=== PATIENT | male | born 1990 | race Two or more races ===

== ENCOUNTER 2017-01-31 08:50 | Emergency (ER) | payer MEDICAID ==
[~2017-01-31] VITALS: Ht 175.3 cm; Wt 68.0 kg
[~2017-01-31 08:50] MED LIST: ADVAIR 250-501 EACH INH; CYCLOBENZAPRINE10 MG ORAL; SINGULAIR10 MG ORAL; TYLENOL EXTRA500 MG ORAL; VENTOLIN HFA18 GM INH
[2017-01-31 09:10] VITALS: BP 121/92
[2017-01-31] MEDS ORDERED: PredniSONE 20mg tab ORAL ONE (09:15)
[2017-01-31] MEDS: Ipratropium 0.02% Inh Soln 2.5ml UD HHN SCH ×2 (09:30→10:17)
[2017-01-31] MEDS: Levalbuterol Inh UD 1.25mg/0.5ml HHN PRN ×2 (09:30→10:17)
[2017-01-31 10:46] VITALS: BP 133/97
[2017-01-31 11:12] VITALS: BP 133/97
[2017-01-31] MEDS ORDERED: PREDNISONE20 MG ORAL (11:15)
[2017-01-31] MEDS ORDERED: VENTOLIN HFA18 GM INH (11:15)
[2017-01-31] MEDS ORDERED: ALBUTEROL2.5 MG/3 M HHN (11:15)
[2017-01-31] MEDS ORDERED: ADVAIR 250-501 EACH INH (11:15)
--- NOTE | 2017-01-31 12:11 | Emergency Room Report ---
History of Present Illness General Chief Complaint: Asthma Source: Patient Present Illness HPI 26-year-old male presents ED complaining of shortness of breath and wheezing. States symptoms started around 4 AM today. Patient has history of asthma. States that he uses nebulizer machine several times without significant relief. Patient is tachycardic here with wheezing. Denies any fevers or chills. Denies chest pain. Denies cough. No other aggravating relieving factors. Denies any other associated symptoms Allergies: Coded Allergies: No Known Allergies (Unverified , 03/01/16) Patient History Past Medical History: asthma Past Surgical History: none Pertinent Family History: none Social History: Denies: alcohol use, drug use, smoking Reviewed Nursing Documentation: PMH: Agreed, PSxH: Agreed Nursing Documentation-PMH Past Medical History: No History, Except For Hx Asthma: Yes Review of Systems All Other Systems: negative except mentioned in HPI Physical Exam Vital Signs Date Time Temp Pulse Resp B/P Pulse Ox O2 Delivery O2 Flow Rate FiO2 01/31/17 09:01 98.2 139 18 121/92 93 Room Air Sp02 EP Interpretation: reviewed, normal General Appearance: no apparent distress, alert, GCS 15, non-toxic Head: normocephalic Eyes: bilateral eye PERRL, bilateral eye normal inspection ENT: normal ENT inspection Neck: normal inspection Respiratory: normal breath sounds, speaking full sentences, wheezing Cardiovascular #1: no edema, tachycardia Gastrointestinal: normal inspection Rectal: deferred Genitourinary: no CVA tenderness Musculoskeletal: normal inspection Neurologic: alert, oriented x3, responsive, motor strength/tone normal, sensory intact, speech normal Psychiatric: normal inspection Skin: normal inspection Lymphatic: normal inspection Medical Decision Making Diagnostic Impression: Primary Impression: Asthma attack ER Course Hospital Course 26-year-old male presents to ED complaining of cough, SOB Differential diagnoses include: URI, bronchitis, asthma/COPD, pneumonia Clinical course Patient placed on stretcher. After initial history, physical exam reveals a male in no acute distress. Bilateral TM unremarkable. No pharyngeal erythema. No tonsillar exudates. No lymphadenopathy. Mild wheezing noted on exam, no signs of respiratory distress or retractions. Patient given Prednisone and xopenex/atrovent treatment x3 in ED with symptoms improved. Patient states that he used to take advair but his insurance ran out in ED and he couldn't afford the medication patient states he has insurance again and can fill the Advair prescription Diagnosis - asthma attack Stable and discharged home with prescriptions for prednisone, albuterol inhaler , advair. Instructed to followup with PMD. Return to ED if symptoms recur or worsen Last Vital Signs Date Time Temp Pulse Resp B/P Pulse Ox O2 Delivery O2 Flow Rate FiO2 01/31/17 11:12 98.2 121 22 133/97 100 Room Air Status: improved Disposition: HOME, SELF-CARE Condition: Stable Scripts Albuterol Sulfate* (ALBUTEROL SULFATE HHN*) 2.5 Mg/3 Ml Vial.neb 2.5 MG HHN Q4H Y for Shortness of Breath, #25 VIAL Prov: REBECA ONEILL M.D. 01/31/17 Fluticasone/Salmeterol (Advair 250-50 Diskus) 1 Each Blst.w.dev 1 PUFF INH EVERY 12 HOURS, #1 EA Prov: REBECA ONEILL M.D. 01/31/17 Prednisone* (PREDNISONE*) 20 Mg Tablet 40 MG ORAL DAILY, #10 TAB Prov: REBECA ONEILL M.D. 01/31/17 Albuterol Sulfate (VENTOLIN HFA) 18 Gm Hfa.aer.ad 1 PUFF INH EVERY 6 HOURS, #18 GM 0 Refills Prov: REBECA ONEILL M.D. 01/31/17 Referrals: [facility],REFERRING (PCP) Patient Instructions: Asthma, Adult REBECA ONEILL M.D. Jan 31, 2017 12:11
== END 2017-01-31 11:28 | disposition home or self-care (01) ==
LOC: EMR 09:11
DX: J45.901 Unspecified asthma with (acute) exacerbation (principal)
CPT/HCPCS: 94640; 94664; 99284; J7644

== ENCOUNTER 2017-03-23 07:08 | Emergency (ER) | payer MEDICAID ==
[~2017-03-23] VITALS: Ht 175.3 cm; Wt 72.6 kg
[~2017-03-23 07:08] MED LIST changes: +ALBUTEROL2.5 MG/3 M HHN; +PREDNISONE20 MG ORAL
[2017-03-23 07:49] LABS: APPEARANCE,URINE CLEAR; KETONES,URINE NEGATIVE (NEGATIVE); LEUKOCYTE ESTERASE ,URINE 1+ (NEGATIVE); NITRITE,URINE NEGATIVE (NEGATIVE); PH,URINE 5 (4.5-8.0); PROTEIN,URINE NEGATIVE (NEGATIVE); UROBILINOGEN,URINE NORMAL MG/DL (0.0-1.0)
[2017-03-23 08:01] LABS: BACTERIA,URINE FEW /HPF; MUCUS,URINE MODERATE /LPF (NONE/OCC); RBC,URINE 0-2 /HPF (0 - 0); SQUAMOUS EPITHELIAL CELL,UR OCCASIONAL /LPF (NONE/OCC); WBC,URINE 0-2 /HPF (0 - 0)
--- NOTE | 2017-03-23 08:54 | Emergency Room Report ---
History of Present Illness General Chief Complaint: Male Urogenital Problems Source: Patient Present Illness HPI 18-year-old male presents to ED for evaluation. Patient states the last 5 days he's had testicular pain. Pain is throbbing, 8/10, nonradiating. Denies any dysuria or discharge. Denies any trauma. Denies any recent sexual activity. No other aggravating relieving factors. Denies any other associated symptoms Allergies: Coded Allergies: No Known Allergies (Unverified , 03/01/16) Patient History Past Medical History: asthma Past Surgical History: none Pertinent Family History: none Social History: Denies: alcohol use, drug use, smoking Immunizations: UTD Reviewed Nursing Documentation: PMH: Agreed, PSxH: Agreed Nursing Documentation-PMH Past Medical History: No History, Except For Hx Asthma: Yes Review of Systems All Other Systems: negative except mentioned in HPI Physical Exam Vital Signs Date Time Temp Pulse Resp B/P Pulse Ox O2 Delivery O2 Flow Rate FiO2 03/23/17 07:17 97.7 78 18 127/84 96 Room Air Sp02 EP Interpretation: reviewed, normal General Appearance: no apparent distress, alert, GCS 15, non-toxic Head: normocephalic Eyes: bilateral eye PERRL, bilateral eye normal inspection ENT: normal ENT inspection Neck: normal inspection Respiratory: normal inspection Cardiovascular #1: normal inspection Gastrointestinal: normal inspection Rectal: deferred Genitourinary: no CVA tenderness, other - L testiciular pain Musculoskeletal: normal inspection Neurologic: alert, oriented x3, responsive, motor strength/tone normal, sensory intact, speech normal Skin: normal inspection Lymphatic: normal inspection Medical Decision Making Diagnostic Impression: Primary Impression: Hydrocele Qualified Codes: N43.3 - Hydrocele, unspecified ER Course 26-year-old male presents ED complaining of testicular pain x5 days Differential-epididymitis, hydrocele, variocele, torsion Patient placed on stretcher. After initial history and physical I ordered pain meds UA and ultrasound UA shows no acute infection identified Scrotal ultrasound shows bilateral hydroceles. No evidence of mass or torsion. diagnosis - hydrocele stable and discharged to home with Rx Motrin, Tylenol #3. given referral to urology. f/u with PMD. return to ED if symptoms recur/worsen. Labs Test 03/23/17 07:23 Urine Color Pale yellow Urine Appearance Clear Urine pH 5 (4.5-8.0) Urine Specific [place] 1.025 (1.005-1.035) Urine Protein Negative (NEGATIVE) Urine Glucose (UA) Negative (NEGATIVE) Urine Ketones Negative (NEGATIVE) Urine Occult Blood Negative (NEGATIVE) Urine Nitrite Negative (NEGATIVE) Urine Bilirubin Negative (NEGATIVE) Urine Urobilinogen Normal MG/DL (0.0-1.0) Urine Leukocyte Esterase 1+ (NEGATIVE) Urine RBC 0-2 /HPF (0 - 0) Urine WBC 0-2 /HPF (0 - 0) Urine Squamous Epithelial Cells Occasional /LPF Urine Bacteria Few /HPF (NONE) Urine Mucus Moderate /LPF (NONE/OCC) CT/MRI/US Diagnostic Results CT/MRI/US Diagnostic Results : Imaging Test Ordered: scotal us Impression bilateral hydroceles. no testicular mass or torsion Last Vital Signs Date Time Temp Pulse Resp B/P Pulse Ox O2 Delivery O2 Flow Rate FiO2 03/23/17 08:46 97.7 03/23/17 07:17 78 18 127/84 96 Room Air Status: improved Disposition: HOME, SELF-CARE Condition: Stable Scripts Acetaminophen With Codeine (T#3) (TYLENOL #3 TAB*) Y Tab 1 TAB ORAL Q8H Y for For Pain, #20 TAB Prov: REBECA ONEILL M.D. 03/23/17 Ibuprofen* (MOTRIN*) 600 Mg Tablet 600 MG ORAL Q8H Y for For Pain, #30 TAB 0 Refills Prov: REBECA ONEILL M.D. 03/23/17 Referrals: [facility],REFERRING (PCP) REBECA ONEILL M.D. Mar 23, 2017 08:54
[2017-03-23] MEDS ORDERED: ACETAMINOPHEN-1 EAC1 ORAL (11:18)
[2017-03-23] MEDS ORDERED: IBUPROFEN600 MG ORAL (11:18)
[2017-03-23 11:32] VITALS: BP 120/78
--- NOTE | 2017-03-23 14:46 | Diagnostic Imaging Report ---
Indication:Scrotal pain Technique: Real time grayscale and duplex Doppler imaging of the scrotum performed. Comparison: None Findings: The size, contour, and echogenicitiy of the testis appear normal bilaterally. There is no mass within the scrotum. Bilateral hydroceles are present. These are small and appear slightly larger on the left compared to the right. There is good doppler evidence of blood flow within both testes. Epididimi are unremarkable. Right testis measures 4.4 x 2.6 x 3.6 mm. Left testis 4 x 2.3 x 3.3 CM. Impression: Small bilateral hydroceles slightly larger on the left. No testicular mass or torsion identified
== END 2017-03-23 11:20 | disposition home or self-care (01) ==
LOC: EMR 07:59
DX: N43.3 Hydrocele, unspecified (principal); J45.909 Unspecified asthma, uncomplicated
CPT/HCPCS: 76870; 81003; 99284

== ENCOUNTER 2020-08-26 14:31 | Emergency (ER) | payer MEDICAID ==
[~2020-08-26] VITALS: Ht 175.3 cm; Wt 74.4 kg
[~2020-08-26 14:31] MED LIST changes: +ACETAMINOPHEN-1 EAC1 ORAL; +IBUPROFEN600 MG ORAL
--- NOTE | 2020-08-26 14:57 | Emergency Room Report ---
History of Present Illness General Chief Complaint: Asthma Source: Patient Present Illness HPI Disclaimer: Please note that this report is being documented using [employer] technology. This can lead to erroneous entry secondary to incorrect interpretation by the dictating instrument. HPI: 29-year-old male history of asthma, currently prescribed Advair, albuterol however out of medications for 1 month presents from home due to worsening shortness of breath. He denies any cough or fever. No nausea vomiting. No chest pain. He attempted to call his primary doctor for prescriptions however was unable to get in touch. He denies any sick contacts. Allergies: Coded Allergies: No Known Allergies (Unverified , 03/01/16) COVID-19 Screening Contact w/high risk pt: No Experienced COVID-19 symptoms?: No COVID-19 Testing performed MANAGER OF CLINICAL: No Patient History Reviewed Nursing Documentation: PMH: Agreed; PSxH: Agreed Nursing Documentation-PM Past Medical History: No History, Except For Hx Asthma: Yes Review of Systems All Other Systems: negative except mentioned in HPI Physical Exam Vital Signs Date Time Temp Pulse Resp B/P (MAP) Pulse Ox O2 Delivery O2 Flow Rate FiO2 08/26/20 14:37 98.1 97 16 138/93 (108) 98 Room Air Sp02 EP Interpretation: reviewed, normal General Appearance: well appearing, no apparent distress Head: normocephalic, atraumatic Eyes: bilateral eye PERRL, bilateral eye EOMI ENT: hearing grossly normal, moist mucus membranes Neck: full range of motion, supple Respiratory: lungs clear, normal breath sounds, no rhonchi, no respiratory distress, no retraction, no wheezing Cardiovascular #1: normal peripheral pulses, regular rate, rhythm, no murmur Gastrointestinal: non tender, soft, non-distended, no guarding Neurologic: alert, oriented x3, no focal defects Skin: normal color, warm/dry Medical Decision Making Diagnostic Impression: Primary Impression: Asthma attack ER Course MDM: Differential included asthma exacerbation, medication noncompliance, less likely pneumonia Clinical course-patient had a COVID-19 test ordered. He had no wheezing but complained of some shortness of breath and has been out of his medications for a month. In the ER did order a nebulizer treatment in addition to prednisone. Covid testing was negative. After breathing treatment and prednisone in the ER patient feeling improved. No acute distress. Will discharge on his home medications. In addition to prednisone. He does have follow-up with his primary doctor and 1 week. Precautions given Labs - Microbiology Date/Time Source Procedure Growth Status 08/26/20 15:35 Nasopharynx SARS-CoV-2 RdRp Gene Assay - Final Complete On reevaluation: Feeling improved Plan-discharge home Last Vital Signs Date Time Temp Pulse Resp B/P (MAP) Pulse Ox O2 Delivery O2 Flow Rate FiO2 08/26/20 14:37 98.1 97 16 138/93 (108) 98 Room Air Disposition: HOME, SELF-CARE Condition: Improved Scripts Albuterol Sulfate* (ALBUTEROL SULFATE HHN*) 2.5 Mg/3 Ml Vial.neb 2.5 MG HHN Q4H PRN for Shortness of Breath, #25 VIAL Prov: Jeffry Powers M.D. 08/26/20 Prednisone* (PREDNISONE*) 20 Mg Tablet 40 MG ORAL DAILY, #10 TAB Prov: Jeffry Powers M.D. 08/26/20 Albuterol Sulfate (VENTOLIN HFA) 18 Gm Hfa.aer.ad 1 PUFF INH EVERY 6 HOURS, #18 GM 0 Refills Prov: Jeffry Powers M.D. 08/26/20 Fluticasone/Salmeterol (Advair 250-50 Diskus) 1 Each Blst.w.dev 1 PUFF INH EVERY 12 HOURS for 30 Days, EA Prov: Jeffry Powers M.D. 08/26/20 Jeffry Powers M.D. Aug 26, 2020 14:57
[2020-08-26] MEDS ORDERED: Albuterol ud Inhalation HHN ONE (15:00)
[2020-08-26] MEDS ORDERED: Ipratropium 0.02% Inh Soln 2.5ml UD HHN ONE (15:00)
--- NOTE | 2020-08-26 15:46 | NUR ---
ED Nurse Note: pt relates he started feeling shortness of breath last night and does not have meds. no cough no fevers. pt tolerates covid swab well. aware of plan to have hhn after test resulted
[2020-08-26 15:49] VITALS: BP 138/93
--- NOTE | 2020-08-26 16:46 | NUR ---
ED Nurse Note: resp therapist here to administer hhn, aware of covid neg result
[2020-08-26] MEDS ORDERED: VENTOLIN HFA18 GM INH (17:08)
[2020-08-26] MEDS ORDERED: ALBUTEROL2.5 MG/3 M HHN (17:08)
[2020-08-26] MEDS ORDERED: ADVAIR 250-501 EACH INH (17:08)
[2020-08-26] MEDS ORDERED: PREDNISONE20 MG ORAL (17:08)
[2020-08-26 17:22] VITALS: BP 138/93
--- NOTE | 2020-08-26 17:22 | NUR ---
pt aware to maintain covid quarantine ED Nurse Note: Pt cleared by health care Provider for discharge. DC instructions/prescription was given and explained to pt and verbalized understanding of teachings. All medical devices such as ID band removed. Pt is AAO x4, ambulatory and left with all personal belongings.
== END 2020-08-26 17:22 | disposition home or self-care (01) ==
LOC: EMR 15:00
DX: J45.909 Unspecified asthma, uncomplicated (principal)
CPT/HCPCS: 94640; U0002; Z7502; 99283